=== PATIENT | male | born 1975 | race Caucasian/White ===

== ENCOUNTER 2018-03-06 10:18 | Emergency (ER) | payer OTHER ==
[~2018-03-06] VITALS: Ht 193 cm; Wt 79.4 kg
[2018-03-06] MEDS ORDERED: JUBLIA4 ML TOP (11:44)
== END 2018-03-06 12:04 | disposition home or self-care (01) ==
LOC: ER 10:18
DX: L60.0 Ingrowing nail (principal); B35.1 Tinea unguium

== ENCOUNTER 2024-06-05 16:21 | Emergency (ER) | payer OTHER ==
[~2024-06-05] VITALS: Ht 180.3 cm; Wt 61.2 kg
[~2024-06-05 16:21] MED LIST: JUBLIA4 ML TOP
[2024-06-05] MEDS ORDERED: ZANAFLEX4 M1 PO (19:33)
[2024-06-05] MEDS ORDERED: DEXAMETHASONE4 MG PO (19:33)
== END 2024-06-05 19:54 | disposition home or self-care (01) ==
LOC: ER 16:23
DX: R07.89 Other chest pain (principal)